=== PATIENT | female | born 1945 | race Caucasian/White ===

== ENCOUNTER → 2016-03-07 | Outpatient (CLI) | payer MEDICARE, OTHER ==
[~2016-03-07] MED LIST: AMITRIPTYLINE H10 MG PO; CALCIUM + D TA1 EACH; COLACE100 MG PO; CVS EAR CARE F; DAYPRO PO; DAYPRO600 MG; DILAUDID2 MG PO; ECOTRIN81 M1; KLONOPIN0.5 M1 PO; LIDODERM 5% P1 PATCH TD; LYRICA75 MG PO; MAXIPIME IV; MS CONTIN,ORAMO30 M2 PO; Maxipime IV; Miralax, Glycolax PO; PANTOPRAZOLE SO40 MG; PHENERGAN12.5 M1 PO; VYTORIN 10-401 EACH; VYTORIN 10/41 TABLET PO; ZESTRIL,PRINIVI40 M1 PO
== END | disposition home or self-care (01) ==
LOC: CDC 10:21
DX: R94.31 Abnormal electrocardiogram [ECG] [EKG] (principal)
CPT/HCPCS: 93000